=== PATIENT | male | born 1940 | race Caucasian/White ===

== ENCOUNTER 2018-02-14 06:45 | Day surgery (SDC) | payer OTHER ==
[2018-02-12 16:35] LABS: Absolute Lymphocytes (CBC) 1.2 K/uL (0.7-4.9); Absolute Monocytes 0.7 K/uL (0.1-1.3); Absolute Neutrophil 2.7 K/uL (1.8-8.0); Basophils % 0.9 % (0-1.3); Eosinophils % 1.8 % (0-4.4); Hematocrit 53.3 % (39.6-49.0); Lymphocytes % 25.9 % (15.3-44.8); MCH 32.7 pg (27.0-35.0); MCV 95.9 fL (80-100); MPV 9.1 fL (7.6-11.3); RBC Red Blood Cell Count 5.56 M/uL (4.33-5.43)
[2018-02-12 16:52] LABS: Potassium 4.1 mmol/L (3.5-5.1)
--- NOTE | 2018-02-12 17:43 | RAD REPORT ---
EXAM DESCRIPTION: RAD - Chest Pa And Lat (2 Views) - 02/12/2018 4:15 pm CLINICAL HISTORY: Hypertension Chest pain. COMPARISON: CHEST PA AND LAT 2 VIEW dated 10/03/2008 FINDINGS: The lungs are clear. The heart is normal in size. No displaced fractures. Mildly tortuous thoracic aorta, unchanged. IMPRESSION: Stable chest since 10/03/2008.
[2018-02-14] MEDS ORDERED: CEFAZOLIN/SWI 1gm 1 GM/10 ML SYR ONE (06:52)
[2018-02-14] MEDS ORDERED: Ringers Lactate 1,000 ML IV ONE (06:52)
[2018-02-14] MEDS ORDERED: PROPOFOL 200 MG/20 ML VIAL IV ONE (07:49)
[2018-02-14] MEDS ORDERED: FENTANYL CITR 100 MCG/2 ML ONE (07:50)
[2018-02-14] MEDS ORDERED: LIDOCAINE 2% MPF 5 ML VIAL ONE (07:50)
[2018-02-14] MEDS ORDERED: MIDAZOLAM HCL 2 MG/2 ML INJ ONE (07:50)
[2018-02-14] MEDS ORDERED: DEXAMETHASONE 10 MG/ML VIAL ONE (08:06)
[2018-02-14] MEDS ORDERED: ONDANSETRON 4 MG/2 ML VIAL ONE (08:08)
--- NOTE | 2018-02-14 09:37 | P.BOP ---
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
[2018-02-14] MEDS ORDERED: KETOROLAC 30 MG/ML INJ ONE (09:44)
[2018-02-14 10:50] VITALS: BP 113/78; TEMP 97.7; O2SAT 94
--- NOTE | 2018-02-19 02:00 | OP ---
Date of Procedure: 02/18/2018 Surgeon: Anurag Morris MD Spinning Mule Operator: None. Preoperative Diagnosis: Basal cell carcinoma, right ear. Postoperative Diagnosis: Basal cell carcinoma, right ear. Procedures: Wide excision of right ear basal cell carcinoma with frozen section. Specimen: Basal cell carcinoma sent to the pathologist shows margins questionable at 3 o'clock. Ext ra margins were sent and negative for cancer. Findings: Basal cell carcinoma, margins free of tumor per pathologist. Anesthesia: General plus local. Complications: None. Indications: This is a case of a 77-year-old patient with an ulcerated mass on the right ear. The p atient fully explained the need for wide resection with benefits, alternatives and risks including, b ut not limited to infection, bleeding, damage to adjacent structures, anesthesia complication, ear de formity, [place], even . He also understands this may not relieve the symptoms. He might need more than one surgical intervention. He understood and signed a consent. Description Of Procedure: The patient was brought to the operating room, placed in supine position. Anesthesia was done without complication. The area of concern was marked by me and the patient prev iously in the recovery room. A time-out was called. Right ear was prepped and draped in a sterile f ashion. An excision was made of the mass with gross negative margins. The cartilage seems not to be involved. So a specimen sent to the pathologist, shows the 3 o'clock margins were closed, it is alfie d to say though. At that moment, we sent more margins, 2 margins were sent of 3 o'clock and came shaina k as margins negative for tumor. At that moment, we proceeded to irrigate the area. This area canno t be closed. The cancer itself is large enough that primary approximation cannot be done. We put tr iple antibiotics over the area and covered the area with sterile dressings. We are going to keep the area moist. The patient tolerated the procedure well. Diagnosis: Basal cell carcinoma, right ear. Procedure: Wide excision with frozen section of basal cell carcinoma. Disposition: Home. Activity: As tolerated. No heavy lifting. Followup: Follow up in my office in 1 week. Call for appointment [phone]. Triple antibiotics. A wet-to-dry dressing of the right ear area. Keep the area covered at all time, only remove when he ta kes a shower. Avoid direct sunlight to the area. Medications: See orders. /MODL Voice ID: [id number] Report ID: [id number]
== END 2018-02-14 11:31 | disposition home or self-care (01) ==
LOC: OR 06:45
PROVIDERS: ATTEND Surgery
PROC: 09B0XZZ Excision of Right External Ear, External Approach (ICD-10-PCS; principal; 2018-02-14 08:15)
DX: C44.212 Basal cell carcinoma of skin of right ear and external auricular canal (principal)
CPT/HCPCS: 36415; 69145; 71046; 80048; 85025; 88305 ×2; 88331 ×2; 88332; J0690; J1100; J2250; J2405; J3010